=== PATIENT | male | born 1965 | race African-American/Black ===

== ENCOUNTER 2018-01-06 06:49 | Day surgery (SDC) | payer MEDICARE ==
[~2018-01-06] VITALS: Ht 188 cm; Wt 74.1 kg
[2018-01-06] VITALS (7 sets, daily range): BP systolic 95–112; BP diastolic 57–76; PULSE 50–67; RESP 16–20; TEMP 97.8; O2SAT 98–99
[~2018-01-06 06:49] MED LIST: ABAC1TAB3 PO; CALC-137 PO; D31000CA PO; LACT12%T TOP; MOBI7.5T PO; THERTAB53 PO; VALA1TAB PO; VITA400T14 PO
[2018-01-06] MEDS ORDERED: THERTAB53 PO (07:21)
[2018-01-06] MEDS ORDERED: DOLU1TAB PO (07:21)
[2018-01-06] MEDS ORDERED: VALA1TAB PO (07:21)
[2018-01-06] MEDS ORDERED: EMTR1TAB4 PO (07:21)
[2018-01-06] MEDS ORDERED: HYDR12.57 PO (07:21)
[2018-01-06] MEDS ORDERED: ROSU1TAB4 PO (07:21)
[2018-01-06] MEDS ORDERED: CALC1TAB87 PO (07:21)
[2018-01-06] MEDS ORDERED: CALCIUM (07:21)
[2018-01-06] MEDS ORDERED: VIT D (07:21)
[2018-01-06 07:40] LABS: AUTOMATED NEUTROPHIL # 0.8 TH/MM3 (1.8-7.7); BASOPHIL % 0.8 % (0.0-2.0); EOSINOPHIL % 1.7 % (0.0-4.0); HEMATOCRIT 38.5 % (39.0-51.0); HEMOGLOBIN 12.4 GM/DL (13.0-17.0); MEAN CORPUSCULAR HEMOGLOBIN 25.1 PG (27.0-34.0); MEAN CORPUSCULAR HGB CONC 32.2 % (32.0-36.0); MONO % 12.7 % (0.0-8.0); MONOCYTE # 0.3 TH/MM3 (0-0.9); NEUT % 37.8 % (16.0-70.0); PLATELET COUNT 229 TH/MM3 (150-450); RED BLOOD COUNT 4.94 MIL/MM3 (4.50-5.90); RED CELL DISTRIBUTION WIDTH 14.8 % (11.6-17.2); WHITE BLOOD COUNT 2.1 TH/MM3 (4.0-11.0)
[2018-01-06] MEDS ORDERED: ceFAZolin 2 GM PREMIX 50 ML - implanted port removal IV SCH (07:45)
[2018-01-06 07:51] LABS: INTERNATIONAL NORMALIZED RATIO 1.1 RATIO; PROTHROMBIN TIME - PATIENT 10.8 SEC (9.8-11.6)
[2018-01-06 08:19] LABS: BASOPHILS 1 % (0-2); LYMPHOCYTES 49 % (9-44); MONOCYTES 12 % (0-8); NEUTROPHIL # MANUAL DIFF 0.8 TH/MM3 (1.8-7.7); OVALOCYTES 1+ (NORMAL); POLYS (SEG NEUTROPHILS) 37 % (16-70)
[2018-01-06] MEDS ORDERED: LIDOCAINE 1%/EPINEPHrine 1:100,000 SOLN 30 ML VIAL ONE (08:22)
[2018-01-06] MEDS ORDERED: MIDAZOLAM HCL 2 MG/2 ML VIAL ONE ×2 (08:27)
--- NOTE | 2018-01-06 09:16 | PD.RAD ---
Post Procedure Progress Note Pre Procedure Diagnosis: (1) History of squamous cell carcinoma Post Procedure Diagnosis: (1) History of squamous cell carcinoma Procedure Date: Jan 06, 2018 Supervising Radiologist: Nicolás Tyler Estimated blood loss: 2cc Anesthesia: Local, Conscious Sedation Plan of Activity Patient to Unit: ROPU Patient Condition: Good Additional Comments: Port removed from the right chest Full dictated report to follow See PACS Report for procedural detail/treatment Nicolás Tyler MD Jan 06, 2018 09:16
--- NOTE | 2018-01-06 10:07 | RADRPT ---
EXAM DATE/TIME: 01/06/2018 09:12 [facility] COMPARISON: No previous studies available for comparison. INDICATIONS : Patient presents with a history of oral and neck cancer in need of port removal that is no longer ne eded. MEDICAL HISTORY : Hep B HIV Anemia High cholesterol SURGICAL HISTORY : Lung bx Port placement Peg Trach ENCOUNTER: Subsequent ACUITY: > 1 year PAIN SCORE: 0/10 LOCATION: N/A SEDATION TIME: 15 minutes 1.) 1 mg midazolam (Versed) IV 2.) 50 mcg fentanyl (Sublimaze) IV Prophylactic antibiotics were administered with appropriate pre-procedure timing. Vancomycin within 2 hrs of procedure, Ancef (or alternative) within 1 hr of procedure. TECH NOTE: The radiation report was 0.1 fluoroscopy minutes used and one scene taken.DIANA NOGUERA MR#:[id number] DOB1 Exam Dt/Desc: January 06, [id number] REMOVAL, W/O FLUORO, RIGHT PROCEDURE : 1. Removal of [id number]. 2. Conscious sedation with continuous EKG and oximetry monitoring. 3. Fluoroscopic guidance. The risks, benefits and alternatives to the procedure were explained and verbal and written consent w as obtained. The patient was placed supine. The port was prepped in sterile fashion. Full sterile t echnique was used, including cap, mask, sterile gloves and gown, and a large sterile sheet. Hand hyg iene and 2% chlorhexidine and/or Betadine/alcohol prep was utilized per protocol for cutaneous antise psis. The skin and subcutaneous tissues were infiltrated with local anesthetic solution the subcutaneous po cket was opened. The port was dissected from the subcutaneous tissues and easily removed in one piec e. The pocket incision was closed with subcuticular Vicryl suture. Steri-Strips were applied. Conscious sedation was performed with the prescribed dosages and duration as above in the presence of an independent trained radiology nurse to assist in the monitoring of the patient. EKG and oximetry remained stable throughout the procedure. The patient tolerated the procedure well and there were n o complications. The patient was sent to post anesthesia recovery in stable condition. CONCLUSION: Uncomplicated port removal as above. Nicolás Tyler MD on January 06, 2018 at 10:05 Board Certified Radiologist. This report was verified electronically.
[2018-01-10] MEDS ORDERED: CALC-137 PO (10:38)
[2018-01-10] MEDS ORDERED: CALC600C3 PO (10:39)
== END 2018-01-06 12:30 | disposition home or self-care (01) ==
LOC: HROP 06:49 → HRIP 06:54 → HROP 12:30
PROVIDERS: ATTEND Internal Medicine Hematology & Oncology
DX: Z45.2 Encounter for adjustment and management of vascular access device (principal); C10.9 Malignant neoplasm of oropharynx, unspecified; D64.9 Anemia, unspecified; E78.00 Pure hypercholesterolemia, unspecified; B19.10 Unspecified viral hepatitis B without hepatic coma; Z21 Asymptomatic human immunodeficiency virus [HIV] infection status; Z01.818 Encounter for other preprocedural examination
CPT/HCPCS: 36590; 85007; 85027; 85610; 85730; 99152; J0690; J2250; J3010